=== PATIENT | female | born 1950 | race Caucasian/White ===

== ENCOUNTER → 2018-08-12 18:18 | Outpatient (CLI) | payer MEDICARE, OTHER | END | disposition home or self-care (01) | LOC: D.MAMMO 11:30 | DX: Z12.31 Encounter for screening mammogram for malignant neoplasm of breast (principal) ==

== ENCOUNTER → 2018-09-21 19:00 | Outpatient (CLI) | payer MEDICARE, OTHER | END | disposition home or self-care (01) | LOC: D.MAMMO 14:00 | DX: R92.8 Other abnormal and inconclusive findings on diagnostic imaging of breast (principal) ==

== ENCOUNTER → 2019-03-23 17:18 | Outpatient (CLI) | payer MEDICARE, OTHER | END | disposition home or self-care (01) | LOC: D.MAMMO 03-15 16:15 | PROVIDERS: ATTEND Emergency Medicine | DX: N63.11 Unspecified lump in the right breast, upper outer quadrant (principal) ==

== ENCOUNTER 2019-09-10 08:00 | Outpatient (CLI) | payer MEDICARE, OTHER | END 2019-09-10 23:59 | disposition home or self-care (01) | LOC: D.MAMMO 08:00 | PROVIDERS: ATTEND Emergency Medicine | DX: R92.8 Other abnormal and inconclusive findings on diagnostic imaging of breast (principal) ==

== ENCOUNTER → 2019-10-01 22:29 | Outpatient (CLI) | payer MEDICARE, OTHER | END | disposition home or self-care (01) | LOC: D.MAMMO 08:00 | PROVIDERS: ATTEND Emergency Medicine | DX: R92.8 Other abnormal and inconclusive findings on diagnostic imaging of breast (principal) ==

== ENCOUNTER 2019-12-03 17:46 | Inpatient (IN) | payer MEDICARE, OTHER ==
[~2019-12-03] VITALS: Ht 167.6 cm; Wt 80.5 kg
[2019-12-03] MEDS ORDERED: ASPIRIN81 MG PO (18:08)
[2019-12-03] MEDS ORDERED: EVISTA60 MG PO (18:08)
[2019-12-03] MEDS ORDERED: LOSARTAN-HCTZ1 EAC1 PO (18:08)
[2019-12-03 18:18] LABS: BASOPHILS 0.3 % (0-2); EOSINOPHILS 1.3 % (0-7); HEMATOCRIT 40.6 % (36.0-48.0); HEMOGLOBIN 13.4 g/dL (12-16); IMMATURE GRANULOCYTES 0.3 % (0-5); LYMPHOCYTES 25.8 % (15-50); MCH 31.5 pg (26.0-34.0); MCV 95.3 fL (80.0-100.0); MEAN PLATELET VOLUME 10.7 fL (7.4-10.4); MONOCYTES 8.9 % (2-11); NEUTROPHILS 63.4 % (40-80); PLATELET COUNT 285 10x3/uL (130-400); RBC 4.26 10x6/uL (4.00-5.40); RDW 14.8 % (11.5-14.5); WBC 10.1 10x3/uL (4.8-10.8)
[2019-12-03 18:22] LABS: APTT 29.9 SECONDS (22.8-39.4); INR 1.22 (0.85-1.17); PROTIME 14.9 SECONDS (11.6-15.0)
[2019-12-03 18:23] LABS: D-DIMER-QUANTITATIVE 0.63 ug/mLFEU (0.20-0.54)
[2019-12-03 18:26] LABS: CALC OSMOLALITY 292 mosm/kg (275-300); CALCIUM 9.7 mg/dL (8.5-10.1); CARBON DIOXIDE 27.5 mmol/L (21.0-32.0); CHLORIDE - SERUM 104 mmol/L (98-107); CREATININE - SERUM 1.1 mg/dL (0.6-1.3); GLUCOSE 118 mg/dL (74-106); POTASSIUM - SERUM 3.4 mmol/L (3.5-5.1); SODIUM 143 mmol/L (136-145); UREA NITROGEN 32 mg/dL (7-18); eGFR NON AFRICAN AMERICAN 52 mL/min (90-120)
[2019-12-03 18:37] LABS: ALBUMIN 3.4 g/dL (3.4-5.0); ALKALINE PHOSPHATASE 79 U/L (46-116); ALT (SGPT) 127 U/L (10-68); BILIRUBIN - TOTAL 0.77 mg/dL (0.2-1.3); CKMB 1.3 U/L (0.0-3.6); CREATINE KINASE 52 UL (21-215); MAGNESIUM - SERUM 1.9 mg/dL (1.8-2.4); PRO BNP 1894 pg/mL (0-125); PROTEIN - SERUM 6.6 g/dL (6.4-8.2); TROPONIN-I 0.024 ng/mL (0.000-0.060)
[2019-12-03 19:30] VITALS: BP 151/105
--- NOTE | 2019-12-03 23:34 | NUR ---
RECEIVED FROM ER, A&OX4, ALIE @10-RAC, NS @ 75-LFA, BED IS LOW, SRX2, CALL LIGHT IN REACH, WILL CONTINUE PLAN OF CARE
[2019-12-03] MEDS ORDERED: FUROSEMIDE20 MG PO (23:45)
[2019-12-03] MEDS ORDERED: TESSALON PERLE100 MG PO (23:46)
--- NOTE | 2019-12-04 02:17 | NUR ---
PT IS NOW IN CAF- DECREASED CARDIZEM DRIP TO 5
[2019-12-04 02:35] VITALS: BP 155/76; BMI 29.1
--- NOTE | 2019-12-04 03:25 | NUR ---
PLACED HAT IN IN POTTY, EXPLAINED I NEED TO COLLECT A UA
--- NOTE | 2019-12-04 03:26 | NUR ---
ADMISSION ASSESSMENT COMPLETED. PT RESTING IN BED. IV CARDIZEM NOW DECREASED TO 5ML/HR DUE TO CAF 70-80 RATE. MONITOR.
[2019-12-04 04:00] VITALS: BP 128/86
[2019-12-04 06:08] LABS: APPEARANCE CLEAR (CLEAR); BILIRUBIN NEGATIVE (NEGATIVE); COLOR YELLOW (YELLOW); GLUCOSE NEGATIVE (NEGATIVE); KETONE SMALL mg/dL (NEGATIVE); NITRITE NEGATIVE (NEGATIVE); PROTEIN NEGATIVE (NEGATIVE); UROBILINOGEN NORMAL (NORMAL)
[2019-12-04 06:08] LABS: BASOPHILS 0.3 % (0-2); EOSINOPHILS 1.2 % (0-7); HEMATOCRIT 36.9 % (36.0-48.0); HEMOGLOBIN 11.8 g/dL (12-16); IMMATURE GRANULOCYTES 0.1 % (0-5); LYMPHOCYTES 26.8 % (15-50); MCH 30.7 pg (26.0-34.0); MCV 96.1 fL (80.0-100.0); MEAN PLATELET VOLUME 11.1 fL (7.4-10.4); MONOCYTES 8.9 % (2-11); NEUTROPHILS 62.7 % (40-80); PLATELET COUNT 231 10x3/uL (130-400); RBC 3.84 10x6/uL (4.00-5.40); RDW 15.1 % (11.5-14.5); WBC 7.5 10x3/uL (4.8-10.8)
[2019-12-04 06:17] LABS: ANION GAP 15.8 mmol/L (8-16); CALCIUM 8.6 mg/dL (8.5-10.1); CARBON DIOXIDE 23.8 mmol/L (21.0-32.0); PHOSPHOROUS 4.4 mg/dL (2.5-4.9); POTASSIUM - SERUM 3.6 mmol/L (3.5-5.1)
[2019-12-04 07:56] VITALS: BP 147/84
--- NOTE | 2019-12-04 08:30 | NUR ---
LEAVING FOR STRESS TEST BY W/C.
[2019-12-04 08:55] LABS: T4 THYROXIN - FREE 1.17 ng/dL (0.76-1.46); THYROID STIMULATING HORMONE 1.17 uIU/mL (0.36-3.74)
[2019-12-04 09:26] VITALS: Ht 167.6 cm; Wt 80.5 kg
--- NOTE | 2019-12-04 09:30 | NUR ---
1ST HALF STRESS TEST COMPLETED. DIET AND MEDS RESUMED.
[2019-12-04 11:19] VITALS: BP 116/59
--- NOTE | 2019-12-04 13:34 | NUR ---
CONT. TO RUN CAF IN . CALL LIGHT IN REACH. WILL CONT. PLAN OF CARE.
[2019-12-04 15:15] VITALS: BP 132/79
--- NOTE | 2019-12-04 19:47 | NUR ---
REPORT AND INITIAL ROUNDS COMPLETED. PT RESTING IN BED. CAF 92 PER TELEMETRY. CARDIZEM DRIP AT 5ML/HR. PT/SPOUSE TEACHING ON PURPOSE OF BETAPACE/USE OF CARDIZEM DRIP INITIALLY. PT AND SPOUSE ARE VERY RECEPTIVE. CPOC. CALL LIGHT IN REACH.
[2019-12-04 19:55] VITALS: BP 144/68
--- NOTE | 2019-12-04 20:55 | NUR ---
BEDTIME MEDS WITH EXTENSIVE TEACHING ABOUT AFIB S/S. STARTED O2 @ 2L/NC FOR MILD SOB. MONITOR.
[2019-12-05 00:21] VITALS: BP 141/82
[2019-12-05 04:49] VITALS: BP 144/83
[2019-12-05 05:36] LABS: BASOPHILS 0.3 % (0-2); EOSINOPHILS 2.2 % (0-7); HEMATOCRIT 37.9 % (36.0-48.0); HEMOGLOBIN 12.3 g/dL (12-16); IMMATURE GRANULOCYTES 0.3 % (0-5); LYMPHOCYTES 28.1 % (15-50); MCH 31.3 pg (26.0-34.0); MCHC 32.5 g/dL (31.0-37.0); MCV 96.4 fL (80.0-100.0); MEAN PLATELET VOLUME 10.9 fL (7.4-10.4); MONOCYTES 10.1 % (2-11); PLATELET COUNT 233 10x3/uL (130-400); RBC 3.93 10x6/uL (4.00-5.40); RDW 15.2 % (11.5-14.5); WBC 7.7 10x3/uL (4.8-10.8)
[2019-12-05 05:41] LABS: ALBUMIN 2.8 g/dL (3.4-5.0); ANION GAP 14.7 mmol/L (8-16); BILIRUBIN - TOTAL 0.67 mg/dL (0.2-1.3); CALCIUM 8.3 mg/dL (8.5-10.1); CARBON DIOXIDE 22.9 mmol/L (21.0-32.0); CREATININE - SERUM 1.1 mg/dL (0.6-1.3); MAGNESIUM - SERUM 1.9 mg/dL (1.8-2.4); POTASSIUM - SERUM 3.6 mmol/L (3.5-5.1); PROTEIN - SERUM 5.7 g/dL (6.4-8.2)
[2019-12-05 07:53] VITALS: BP 152/86
[2019-12-05 11:28] VITALS: BP 133/85
--- NOTE | 2019-12-05 13:12 | NUR ---
HR DROPPED TO 37. CARDIZEM GTT STOPPED AND DR. SERRANO PAGEMarquise.
--- NOTE | 2019-12-05 13:13 | NUR ---
HR 49. STILL IN A-FIB. WILL CONT. TO MONITOR PER DR. SERRANO.
[2019-12-05 15:32] VITALS: BP 109/51
--- NOTE | 2019-12-05 18:11 | NUR ---
TELEMETRY SB. HR 44.
--- NOTE | 2019-12-05 19:30 | NUR ---
REPORT AND INITIAL ROUNDS COMPLETED. PT RESTING IN BED. ALERT/ORIENTED. PIV SALINE LOCKED IN LFA X 2. CPOC. FALL PRECAUTIONS.
--- NOTE | 2019-12-05 19:30 | NUR ---
REPORT AND INITIAL ROUNDS COMPLETED. PT RESTING IN BED. SPOUSE AT BEDSIDE. PT HAS IVF INFUSING AND IS C/O THEM MAKING HER FEEL PUFFY. PLANS TO CALL DR SERRANO AND WILL MENTION IVF AT THAT TIME.
[2019-12-05 20:30] VITALS: BP 144/79
--- NOTE | 2019-12-05 20:35 | NUR ---
PHONE CALL TO DR SERRANO TO DISCUSS CURRENT HEART RATE OF 50'S AND DUE FOR 120MG OF BETAPACE TONIGHT. REQUESTING PARAMETERS. MEDS DISCUSSED. VS REVIEWED. NEW ORDERS RECIEVED FOR BETAPACE TO BE DECREASED TO 80MG TWICE DAILY. ALSO PERMISSION TO DISCONTINUE IVF AT PT REQUEST DUE TO IT MAKING HER FEEL "HEAVY". PT IS CURRENTLY UP WALKING VERY SHORT DISTANCES IN THE HALLWAY. HEARTRATE STAYS IN THE 50'S EVEN WHEN UP AND ACTIVE.
[2019-12-06 00:45] VITALS: BP 161/73
[2019-12-06 04:25] VITALS: BP 138/79
[2019-12-06 05:03] LABS: BASOPHILS 0.1 % (0-2); EOSINOPHILS 1.9 % (0-7); HEMATOCRIT 38.2 % (36.0-48.0); HEMOGLOBIN 12.2 g/dL (12-16); IMMATURE GRANULOCYTES 0.1 % (0-5); LYMPHOCYTES 29.7 % (15-50); MCHC 31.9 g/dL (31.0-37.0); MCV 97.2 fL (80.0-100.0); MEAN PLATELET VOLUME 10.8 fL (7.4-10.4); MONOCYTES 9.5 % (2-11); NEUTROPHILS 58.7 % (40-80); PLATELET COUNT 233 10x3/uL (130-400); RBC 3.93 10x6/uL (4.00-5.40); RDW 15.1 % (11.5-14.5); WBC 8.4 10x3/uL (4.8-10.8)
--- NOTE | 2019-12-06 05:10 | NUR ---
PT HAS RESTED THROUGH THE NIGHT. NO CHANGE FROM INITIAL SHIFT ASSESSMENT. CPOC.
[2019-12-06 05:30] LABS: ANION GAP 12.5 mmol/L (8-16); BILIRUBIN - TOTAL 0.5 mg/dL (0.2-1.3); CALCIUM 8.4 mg/dL (8.5-10.1); CARBON DIOXIDE 26.2 mmol/L (21.0-32.0); POTASSIUM - SERUM 3.7 mmol/L (3.5-5.1); PROTEIN - SERUM 5.6 g/dL (6.4-8.2)
[2019-12-06 05:41] LABS: CREATININE - SERUM 1.4 mg/dL (0.6-1.3)
[2019-12-06 08:00] VITALS: BP 140/62
[2019-12-06 14:55] VITALS: BP 145/75
[2019-12-06 17:42] VITALS: BP 142/56
[2019-12-06 20:41] VITALS: BP 122/74
[2019-12-07 00:35] VITALS: BP 144/69
[2019-12-07 04:00] VITALS: BP 171/81
[2019-12-07 06:11] LABS: ALBUMIN 2.9 g/dL (3.4-5.0); ANION GAP 17.1 mmol/L (8-16); BILIRUBIN - TOTAL 0.7 mg/dL (0.2-1.3); CALCIUM 8.5 mg/dL (8.5-10.1); CARBON DIOXIDE 23.1 mmol/L (21.0-32.0); CREATININE - SERUM 1.2 mg/dL (0.6-1.3); POTASSIUM - SERUM 3.2 mmol/L (3.5-5.1); PROTEIN - SERUM 5.3 g/dL (6.4-8.2)
--- NOTE | 2019-12-07 07:15 | NUR ---
RECEIVED PT IN BED AAOX4 RESP UNLABORED SKIN W/D COLOR WNL PT DENIES ANY DISCOMFORT OR NEEDS AT THIS TIME WILL CONTINUE TO MONITOR
[2019-12-07 07:21] LABS: BASOPHILS 0.1 % (0-2); EOSINOPHILS 1.8 % (0-7); HEMATOCRIT 38.8 % (36.0-48.0); HEMOGLOBIN 12.8 g/dL (12-16); IMMATURE GRANULOCYTES 0.4 % (0-5); LYMPHOCYTES 24.4 % (15-50); MCH 31.4 pg (26.0-34.0); MCV 95.3 fL (80.0-100.0); MEAN PLATELET VOLUME 12.4 fL (7.4-10.4); MONOCYTES 11.2 % (2-11); NEUTROPHILS 62.1 % (40-80); RBC 4.07 10x6/uL (4.00-5.40); RDW 14.9 % (11.5-14.5); WBC 8.5 10x3/uL (4.8-10.8)
[2019-12-07 07:22] LABS: PLATELET COUNT 147 10x3/uL (130-400)
[2019-12-07 11:01] VITALS: BP 157/56
[2019-12-07] MEDS ORDERED: BETAPACE 80 MG80 MG PO (16:38)
--- NOTE | 2019-12-08 09:08 | MORECARE ---
CASE MANAGEMENT DISCHARGE SUMMARY PATIENT: TYSHAWN CUMMINGS UNIT: [id number] ADM DATE: 12/03/19 AGE: 69 : 49 SEX: F ROOM/BED: D.4008 AUTHOR: CHAPITO LIVE PHYSICIAN: REFERRING PHYSICIAN: GABE SHIPMAN MD DATE OF SERVICE: 12/08/19 Discharge Plan Patient Name: TYSHAWN CUMMINGS Facility: [facility]:[place] : 1950 Planned Disposition: Home Anticipated Discharge Date: 12/07/19 Discharge Date: 12/07/2019 Expected LOS: 4 Initial Reviewer: [email or web address] Initial Review Date: 12/08/2019 Generated: 12/08/19 10:08 am Patient Name: TYSHAWN CUMMINGS Page 22252 at 0908 All edits/amendments must be made on the electronic document DICTATION DATE: 12/08/19907 FEED MANAGEMENT ADVISOR: DM 12/08/19907 RPT#: [id number] DC DATE:12/07/19 STATUS: DIS IN [facility] [address] [facility] [place] [address] END OF REPORT
== END 2019-12-07 19:27 | disposition home or self-care (01) | DRG 308 ==
LOC: D.ER 17:46 → D.M2 21:58
PROVIDERS: Family Medicine; Internal Medicine Cardiovascular Disease; ADMIT Family Medicine; ATTEND Family Medicine
DX: I48.19 Other persistent atrial fibrillation (principal); I50.23 Acute on chronic systolic (congestive) heart failure; I42.9 Cardiomyopathy, unspecified; D64.9 Anemia, unspecified; I11.0 Hypertensive heart disease with heart failure; I08.1 Rheumatic disorders of both mitral and tricuspid valves

== ENCOUNTER 2019-12-27 07:45 | Outpatient (CLI) | payer MEDICARE, OTHER ==
[~2019-12-27] VITALS: Ht 167.6 cm; Wt 79.5 kg
--- NOTE | ~2019-12-27 | HEMODYNAMI ---
PATIENT:TYSHAWN CUMMINGS MEDICAL RECORD: [id number] : 48 LOCATION:[facility] ADMISSION DATE: 12/27/19 Generatedon:12/27/201910:07 Patient name: TYSHAWN CUMMINGS Patient #: [id number] SSN: [id number] : 1950 Date of study: 12/27/2019 Page: Of Hemodynamic Procedure Report Patient Data Patient Demographics Procedure consent was obtained First Name: TYSHAWN Gender: Female Last Name: ZOILA : 1950 [facility] Initial: GEOFF Age: 69 year(s) Patient #: [id number] Race: Unknown SSN: [id number] Additional ID: [id number] Contact details [address]: [address] [place] [address] State: [place] City: [place] Zip code: [address] Past Medical History Performed procedures and imaging results Date Procedure Procedure Results Comments Echocardiography Allergies: No known allergies Admission Admission Data Admission Date: 12/27/2019 Admission Time: 7:45 Arrival Date: 12/27/2019 Arrival Time: 0:00 Height (in.): 66 BSA: 1.9 (m2) Height (cm.): 167.64 BMI: 28.73 (kg/m2) Weight (lbs.): 178 Weight (kg.): 80.74 Lab Results Lab Result Date: 12/27/2019 Lab Result Time: 0:00 Biochemistry Name Units Result Min Max BUN mg/dl 25 --(----)-* 7 18 Creatinine mg/dl 1.1 --(--*-)-- 0.6 1.3 eGFR ml/min 52 *-(----)-- 90 120 NONAFRICAN CBC Name Units Result Min Max Hematocrit % 42.2 --(*---)-- 42 54 Hemoglobin g/dl 13.9 --(*---)-- 13.5 17.5 Procedure Procedure Types Cath Procedure Diagnostic Procedure [facility] w/Coronaries Procedure Description Procedure Date Procedure Date: 12/27/2019 Procedure Start Time: 9:57 Procedure End Time: 10:05 Procedure Staff Name Function Pop Green MD Performing Physician Sinai Moyer RT Monitor Eryn Lowery RT Scrub Mesfin Dupree RN Nurse Procedure Data Cath Procedure Fluoroscopy Diagnostic fluoroscopy Total fluoroscopy Time: 0.8 time: 0.8 min min Diagnostic fluoroscopy Total fluoroscopy dose: 195 dose: 195 mGy mGy Contrast Material Contrast Material Type Amount (ml) Isovue 300 34 Entry Location Entry Primary Successful Side Size Upsize Upsize Entry Closure [place] ccessful Closure Location (Fr) 1 (Fr) 2 (Fr) Remarks Device Remarks Radial Right 6 Fr Mechanical artery Short Compression Estimated blood loss: 5 ml Procedure Complications No complications Procedure Medications Medication Administration Route Dosage 0.9% NaCl I.V. 100 ml/hr Oxygen etCO2 Nasal cannula 2 l/min Heparin Flush Bag added to field 2 bags (1000units/500ml NS) Lidocaine 2% added to field 20 Radial Cocktail added to field 1 syringe (Verapamil 2mg/Nitro 400mcg/Heparin 1500units) Versed I.V. 2 mg Fentanyl I.V. 100 mcg Versed I.V. 2 mg Radial Cocktail I.A. 1 syringe (Verapamil 2mg/Nitro 400mcg/Heparin 1500units) Hemodynamics Rest BSA: 1.9 (m2) HGB: 13.9 (g/dl) O2 Consumption: Estimated: 163.9 (ml/min) O2 Cons umption indexed: Estimated:86.26 (ml/min/m) Heart Rate: 54 (bpm) Snapshots Pre Cath Intra NCS Post Cath Vital Signs Time Heart Resp SPO2 etCO2 NIBP (mmHg) Rhythm Pain Sedation Rate (ipm) (%) (mmHg) Status Level (bpm) 9:27:38 54 20 99 30 179/83(112) NSR 0 (11) 10(A) , No pain 9:32:09 51 15 96 26.2 146/73(95) NSR 0 (11) 10(A) , No pain 9:36:31 51 15 95 18 145/74(96) NSR 0 (11) 10(A) , No pain 9:40:37 49 13 97 27 129/75(100) NSR 0 (11) 10(A) , No pain 9:44:53 49 21 98 14.2 147/71(97) NSR 0 (11) 10(A) , No pain 9:50:10 49 21 98 35.3 141/67(108) NSR 0 (11) 10(A) , No pain 9:54:28 48 12 98 36.8 145/71(96) NSR 0 (11) 10(A) , No pain 9:58:48 50 14 98 0 151/74(96) NSR 0 (11) 10(A) , No pain 10:03:08 58 18 95 22.5 119/62(83) NSR 0 (11) 9(A) , No pain Medications Time Medication Route Dose Verified Delivered Reason Notes Effectiveness by by 9:19:07 0.9% NaCl I.V. 100 Mesfin Mesfin Per ml/hr Leia Dupree physician RN RN 9:19:16 Oxygen etCO2 2 l/min Mesfin Mesfin for low 02 Nasal Lorigan Leia sats cannula RN RN 9:19:28 Heparin Flush added 2 bags Mesfin Mesfin used for Bag to Leia Dupree procedure (1000units/500ml field CASTRO RN NS) 9:19:41 Lidocaine 2% added 20ml Mesfin Mesfin for local to vial Lorigan Lorigan anesthetic field CASTRO RN 9:19:56 Radial Cocktail added 1 Mesfin Mesfin used for (Verapamil to syringe Leia Dupree procedure 2mg/Nitro field CASTRO RN 400mcg/Heparin 1500units) 9:56:14 Versed I.V. 2 mg Mesfin Mesfin for sedation Leia Dupree RN RN 9:56:22 Fentanyl I.V. 100 mcg Mesfin Mesfin for sedation Leia Dupree RN RN 9:58:43 Versed I.V. 2 mg Mesfin Mesfin for sedation Leia Dupree RN RN 9:59:00 Radial Cocktail I.A. 1 Mesfin Pop for (Verapamil syringe Leia worley 2mg/Nitro RN 400mcg/Heparin 1500units) Procedure Log Time Note 8:58:04 Informed consent obtained and on chart 8:58:50 Procedure Status Elective Heart Cath (OP). 8:58:51 Time tracking: Regular hours (M-F 7:00 - 5:00) 8:58:55 Plan of Care:Hemodynamics will remain stable., Cardiac rhythm will remain stable., Comfort level will be maintained., Respiratory function will remain adequate., Patient/ family verbilizes understanding of procedure., Procedure tolerated without complication., Recovers from procedure without complications.. 8:59:03 H&P Date Dictated: 12/24/2019 Within 30 days and on chart., H&P Addendum completed by physician on day of procedure. (MUST COMPLETE FOR ALL OUTPATIENTS). 8:59:39 Patient allergic to No known allergies 9:02:01 Patient Weight : 178 lbs 9:02:06 Patient Height : 66 inches 9:02:09 Arrival Date: 12/27/2019 12:00:00 AM 9:07:18 Mesfin Dupree RN sent for patient. Start room use. 9:15:08 Patient received from Pre/Post Procedure Room to CCL 1 Alert and oriented. Tansferred to table in Supine position. 9:15:10 Warm blankets applied, and jazmín hugger turned on for patient comfort. 9:15:10 Correct patient and procedure confirmed by team. 9:15:11 ECG and BP/O2 sat monitors applied to patient. 9:19:07 0.9% NaCl 100 ml/hr I.V. was administered by Mesfin Dupree RN; Per physician; Verbal order read back and verified. 9:19:16 Oxygen 2 l/min etCO2 Nasal cannula was administered by Mesfin Dupree RN; for low 02 sats; Verbal order read back and verified. 9:19:28 Heparin Flush Bag (1000units/500ml NS) 2 bags added to field was administered by Mesfin Dupree RN; used for procedure; Verbal order read back and verified. 9:19:41 Lidocaine 2% 20ml vial added to field was administered by Mesfin Dupree RN; for local anesthetic; Verbal order read back and verified. 9:19:56 Radial Cocktail (Verapamil 2mg/Nitro 400mcg/Heparin 1500units) 1 syringe added to field was administered by Mesfin Dupree RN; used for procedure; Verbal order read back and verified. 9:26:20 Vital chart was started 9:26:21 Baseline sample Acquired. 9:26:23 Rhythm: sinus bradycardia 9:26:25 Full Disclosure recording started 9::26 Pre-procedure instructions explained to patient. 9::26 Pre-op teaching completed and patient verbalized understanding. 9:26:27 Family in patients room. 9:26:28 Patient NPO since Midnight. 9:26:32 Is the patient allergic to Iodine/contrast media? No. 9:26:34 Is patient on blood thinner?No 9:26:46 LAST DOSE OF ELIQUIS 12.24 9:26:48 Patient diabetic? No. 9:26:49 Patient not . Patient is over age 55. 9:26:52 Previous problem with sedation/anesthesia? No ? 9:26:55 Snore? No 9:26:56 Sleep apnea? No 9::57 Deviated septum? No 9:26:58 Opens mouth fully? Yes 9:26:58 Sticks out tongue? Yes 9:27:00 Airway obstruction? No ? 9:27:04 Dentures? No ? 9:29:24 Pre procedure: right dorsailis pedis pulse 1+ Palpable, but thready & weak; easily obliterated 9:29:26 Modified Anastacio's test Ulnar < 7 seconds 9:29:28 Patient pain scale 0/10 ?. 9:29:33 IV patent on arrival in right antecubital with 0.9% NaCl at [facility]. 9:30:56 Lab Result : BUN 25 mg/dl 9:30:56 Lab Result : Creatinine 1.1 mg/dl 9:30:56 Lab Result : eGFR NONAFRICAN 52 ml/min 9:30:56 Lab Result : Hemoglobin 13.9 g/dl 9:30:56 Lab Result : Hematocrit 42.2 % 9:30:58 Lab results completed and on chart. 9:31:03 Right Radial & Right Groin area was prepped with chlora-prep and draped in sterile fashion 9:31:04 Alarms reviewed by R. N. 9:31:05 Sharps counted by scrub and verified by R.N. 9:31:09 Use device set Radial Dx or PCI 9:31:12 ACIST Syringe (70410) opened to sterile field. 9:31:12 Bag Decanter () opened to sterile field. 9:31:13 ACIST Hand Control (66763) opened to sterile field. 9:31:13 ACIST Manifold (74063) opened to sterile field. 9:31:14 Tegaderm 4 x 4 (1626W) opened to sterile field. 9:31:15 Medline Cath Pack ([id number]) opened to sterile field. 9:31:15 MBrace Wrist Support (015127770) opened to sterile field. 9:31:16 EMERALD Guide Wire (638-425) opened to sterile field. 9:31:17 SHEATH 6FR RAIN (3251907) opened to sterile field. 9:35:00 Risk of Mortality: .1 9:35:03 Risk of blood transfusion: .2 9:35:06 Risk of JANEY: .4 9:44:35 Zero performed for pressure channel P1 9:55:40 --------ALL STOP TIME OUT------ 9:55:40 Final Timeout: patient, procedure, and site verified with staff and physician. All members of the team are in agreement. 9:55:41 Right Radial & Right Groin site verified by team. 9:55:44 Fire Safety Assessment: A--An alcohol-based skin anteseptic being used preoperatively., C--Open oxygen or nitrous oxide is being used., D--An ESU, laser, or fiber-optic light is being used. 9:55:47 Physical assessment completed. ASA score P 2 - A patient with mild systemic disease as per Pop Green MD. 9:55:58 3a) 45-59 Moderately reduced kidney function. 9:56:01 Maximum allowable contrast dose (3.7 X eGFR X 0.75)144 ml. 9:56:04 Sedation plan: IV Moderate Sedation Medication:Versed, Fentanyl 9:56:14 Versed 2 mg I.V. was administered by Mesfin Dupree RN; for sedation; Verbal order read back and verified. 9:56:22 Fentanyl 100 mcg I.V. was administered by Mesfin Dupree RN; for sedation; Verbal order read back and verified. 9:57:33 Procedure started. 9:57:48 Local anesthetic to right radial artery with Lidocaine 2% by Pop Green MD.INITIAL ACCESS ONLY 9:58:43 Versed 2 mg I.V. was administered by Mesfin Dupree RN; for sedation; Verbal order read back and verified. 9:58:46 A 6 Fr Short sheath was inserted into the Right Radial artery 9:59:00 Radial Cocktail (Verapamil 2mg/Nitro 400mcg/Heparin 1500units) 1 syringe I.A. was administered by Pop Green MD; for vasodilation; Verbal order read back and verified. 9:59:56 LV gram done using ROSALES 10:00:01 Injector settings: Ml/sec: 5, Volume: 15, 10:00:25 EF : 40 % 10:01:04 LCA angiography performed. 10:01:17 RCA angiography performed. 10:01:21 ACCDominant side:Right 10:01:23 Catheter removed. 10:01:47 ZEPHYR REGULAR TR BAND (495495) opened to sterile field. 10:02:02 Sheath removed intact; hemostasis achieved with Mechanical Compression to the Right Radial artery. 10:02:04 Procedure ended.(Physican Out) 10:02:30 Fluoroscopy time 00.80 minutes. 10:02:35 Flurop Dose total: 195 10::35 Fluoroscopy dose: 195 mGy 10:02:43 Dose Area Product 28795 mGy/cm. 10:02:47 Contrast amount:Isovue 300 34ml. 10:02:49 Maximum allowable dose exceeded? No. 10:02:50 Sharps counted by scrub and verified by R.N. 10:02:53 Onemo band inflated with 9cc of air. 10:02:56 Post-procedure physical assessment completed. ASA score P 2 - A patient with mild systemic disease as per Pop Green MD. 10:03:01 Post procedure rhythm: unchanged. 10:03:03 Estimated blood loss: 5 ml 10:03:05 Post procedure instruction explained to patient.Patient verbalizes understanding. 10:03:05 Patient needs reinforcement of post procedure teaching. 10:04:44 Procedure and supply charges have been captured, reviewed, submitted and are correct. 10:04:47 Procedure Complication : No complications 10:04:48 Vital chart was stopped 10:04:50 [facility] Findings: mild to moderate CAD (<70%) 10:04:51 Operative report dictated upon procedure completion. 10:04:52 See physician's report for complete and final results. 10:04:58 Report given to Pre/Post Procedure Room. 10:05:00 Patient transfered to Pre/Post Procedure Room with Bed. 10:05:02 Procedure ended. 10:05:02 Full Disclosure recording stopped 10:05:05 End room use (Document Last) Device Usage Item Name Manufacture Quantity Catalog Hospital Part Current Minima l Lot# / Number Charge Number Stock Stock Serial# Code ACIST Acist 1 43917 [id number] [id number] [id number] 20 Syringe Medical (99378) Systems Inc Bag Microtek 1 2001S 175682 03848 828009 5 Decanter Medical Inc. (2001S) ACIST Hand Acist 1 23948 502128 164825 630657 5 Control Medical (46476) Systems Inc ACIST Acist 1 71086 298516 822921 633587 5 Manifold Medical (31805) Systems Inc Tegaderm 4 3M 1 1626W 453562 084406 479056 5 x 4 (1626W) Medline Medline 1 [id number] 403922 66583 588926 5 Cath Pack ([id number]) MBrace Advanced 1 140-0250-00 973986 95483 699773 5 Wrist Vascular Support Dynamics ([id number]) EMERALD Cardinal 1 502-978 604622 968895 306097 5 Guide Wire Health (621-741) SHEATH 6FR Cardinal 1 [id number] 276857 7640819 488685 5 RAIN Health (0382016) ZEPHYR Cardinal 1 364561 370419 1645305 697620 5 REGULAR TR Health BAND (165769) Signature Audit [place] Stage Time Signature Unsigned Intra-Procedure 12/27/2019 Sinai Moyer 10:07:07 AM RT(R) Intra-Procedure 12/27/2019 Sinai Moyer 10:07:24 AM RT(R) Intra-Procedure 12/27/2019 Mesfin 10:07:38 AM Leia CASTRO Intra-Procedure 12/27/2019 Pop Green 10:07:53 AM [place] [address] [place] [address]
[~2019-12-27 07:45] MED LIST: ASPIRIN81 MG PO; BETAPACE 80 MG80 MG PO; EVISTA60 MG PO; FUROSEMIDE20 MG PO; LOSARTAN-HCTZ1 EAC1 PO; TESSALON PERLE100 MG PO
[2019-12-27] MEDS ORDERED: ELIQUIS2.5 MG PO (08:04)
[2019-12-27 08:24] VITALS: BP 164/71; Ht 167.6 cm; Wt 79.5 kg
[2019-12-27 08:51] LABS: ANION GAP 10.2 mmol/L (8-16); CALCIUM 8.6 mg/dL (8.5-10.1); CARBON DIOXIDE 30.8 mmol/L (21.0-32.0); CHOL - HDL RATIO 4.8 ratio (2.3-4.1); CREATININE - SERUM 1.1 mg/dL (0.6-1.3); LDL-HDL RATIO 3.3 ratio (1.5-3.5)
[2019-12-27 08:59] LABS: BASOPHILS 0.3 % (0-2); EOSINOPHILS 0.6 % (0-7); HEMATOCRIT 42.2 % (36.0-48.0); HEMOGLOBIN 13.9 g/dL (12-16); IMMATURE GRANULOCYTES 0.2 % (0-5); MCHC 32.9 g/dL (31.0-37.0); MCV 94.2 fL (80.0-100.0); MEAN PLATELET VOLUME 11.4 fL (7.4-10.4); MONOCYTES 8.6 % (2-11); NEUTROPHILS 67.3 % (40-80); RBC 4.48 10x6/uL (4.00-5.40); WBC 11.5 10x3/uL (4.8-10.8)
[2019-12-27 09:24] LABS: PLATELET COUNT 276 10x3/uL (130-400)
--- NOTE | 2019-12-27 10:21 | NUR ---
REC TO ROOM FROM CORRECTIONAL NURSE VIA STRETCHER. MONITORING INITIATED. DR LUJAN IN TO SPEAK W PT'S JUST PRIOR TO HER ARRIVAL. R WRIST W ZBAND CDI, NO S/S BLEEDING OR HEMATOMA. INITIAL VSS, SB 50, BP 152/65, SAT 96% RR 20.
--- NOTE | 2019-12-27 10:47 | NUR ---
R WRIST ZBAND CDI, NO S/S BLEEDING OR HEMATOMA. BP 149/63, HR SB 51, RR 11, SAT 97%. AWAKE AND ALERT, WATCHING TV. HAS HAD SANDWICH AND JELLO, NOW SIPPING COFFEE. AT BEDSIDE.
--- NOTE | 2019-12-27 10:59 | NUR ---
R WRIST ZBAND CDI, NO S/S BLEEDING/HEMATOMA. HR SB 53, BP 149/63, RR 18, SAT 97% ON RA. AT BEDSIDE.
--- NOTE | 2019-12-27 11:32 | NUR ---
3ML AIR RELEASED R RADIAL Z BAND. NO S/S BLEEDING OR HEMATOMA. BP 124/53, SB 52, RR 20, SAT 94% RA.
--- NOTE | 2019-12-27 11:54 | NUR ---
3ML AIR RELEASED FROM R WRIST Z BAND. NO S/S BLEEDING OR HEMATOMA. HR 67, SR, BP 127/72, SAT 93% ON RA.
--- NOTE | 2019-12-27 12:00 | NUR ---
3ML AIR RELEASED Z BAND, NO S/S BLEEDING OR HEMATOMA R WRIST. MONITORING DC, IV DC TIP INTACT. ASSISTED TO DRESS.
--- NOTE | 2019-12-27 12:15 | NUR ---
DC INSTRUCTIONS REVIEWED. PT VERBALIZES UNDERSTANDING. R WRIST ZBAND REMOVED, TEGADERM AND 2X2 DRESSING PLACED. NO BLEEDING OR S/S HEMATOMA NOTED.
--- NOTE | 2019-12-27 12:22 | NUR ---
DC VIA WHEELCHAIR TO PRIVATE CAR W . PT HAS ALL BELONGINGS.
--- NOTE | 2019-12-28 11:25 | OP ---
PATIENT NAME: TYSHAWN CUMMINGS MEDICAL RECORD: [id number] :48 LOCATION:D.CAT ADMISSION DATE: SURGEON: JESSIE LUJAN MD DATE OF OPERATION: 12/27/2019 DATE OF SERVICE: 12/27/2019 PROCEDURES: 1. Left heart catheterization. 2. Selective coronary angiography. 3. Left ventriculogram. INDICATION: History of atrial fibrillation with cardiomyopathy, ejection fraction 25%, angina and shortness of breath. PROCEDURE IN DETAIL: After informed consent was obtained and after detailed description of risks, benefits as well as alternative therapies, the patient elected to proceed with angiogram and heart catheterization. The right radial area was prepped and draped in normal sterile fashion. Right radial artery was cannulated via modified Seldinger technique with placement of 6-Comoran sheath. All catheters exchanged through this sheath. FINDINGS: Left ventriculogram was performed in standard 30-degree ROSALES view, reveals good cardiac wall motion, ejection fraction estimated at 50%. SELECTIVE CORONARY ANGIOGRAPHY: Left main, left anterior descending, left circumflex, right coronary artery are all smooth-walled vessels with no angiographic evidence of coronary artery disease. OVERALL IMPRESSION: 1. No angiographic evidence of coronary artery disease. 2. Normal left heart pressure. 3. Normal left ventricular systolic function. Center medical management on treatment of the atrial fibrillation. TRANSINT:[id number] Voice Confirmation ID: [id number] DOCUMENT ID: [id number] JESSIE LUJAN MD at 1125 CC: [id number] DICTATION DATE: 12/27/19 1015 SOFTBALL COACH: 12/27/19 1134 DEP CLI 12/27/19 [place] [id number]
== END 2019-12-27 12:22 ==
LOC: D.CATH 07:45
PROVIDERS: ATTEND Internal Medicine Interventional Cardiology
DX: I48.91 Unspecified atrial fibrillation (principal); I42.9 Cardiomyopathy, unspecified; I20.9 Angina pectoris, unspecified; R06.02 Shortness of breath; I10 Essential (primary) hypertension

== ENCOUNTER → 2020-05-30 12:48 | Outpatient (CLI) | payer MEDICARE, OTHER ==
[2019-12-27 08:24] VITALS: BMI 28.3
[~2020-05-30 12:48] MED LIST changes: +ELIQUIS2.5 MG PO
== END | disposition home or self-care (01) ==
LOC: D.HCCECHO 12:48
PROVIDERS: ATTEND Internal Medicine Cardiovascular Disease
DX: I42.9 Cardiomyopathy, unspecified (principal)